=== PATIENT | male | born 1975 | race Caucasian/White ===

== ENCOUNTER → 2018-08-25 14:11 | Emergency (ER) | payer BC ==
[~2018-08-25 14:11] MED LIST: Ibuprofen TAB* 600 MG PO ONE
--- NOTE | 2018-08-25 15:54 | ED ---
Lower Extremity - HPI Summary HPI Summary: Patient complains of right foot pain after dropping trailer tongue on to right foot. Ambulatory with pain. Denies any other pain injury or symptoms. - History of Current Complaint Chief Complaint: EDExtremityLower Stated Complaint: FOOT INJURY Time Seen by Provider: 08/25/18 14:40 Hx Obtained From: Patient Mechanism Of Injury: Blunt Trauma Onset of Pain: Immediate Onset/Duration: Hours Severity Initially: Mild Pain Intensity: 3 Pain Scale Used: 0-10 Numeric Timing: Intermittent Location: Is Discrete @ Character Of Pain: Aching, Throbbing Associated Signs And Symptoms: Positive: Swelling, Bruising Aggravating Factor(s): Standing, Ambulation Alleviating Factor(s): Rest Able to Bear Weight: Yes - Allergies/Home Medications Allergies/Adverse Reactions: Allergies Allergy/AdvReac Type Severity Reaction Status Date / Time No Known Allergies Allergy Verified 08/25/18 14:15 Home Medications: Home Medications Lisinopril 10 mg PO DAILY 08/25/18 [History Confirmed 08/25/18] PMH/Surg Hx/FS Hx/Imm Hx Endocrine/Hematology History: Denies: Hx Diabetes, Hx Thyroid Disease Cardiovascular History: Reports: Hx Hypertension - mild Respiratory History: Reports: Hx Sleep Apnea Denies: Hx Asthma History: Denies: Hx Dialysis Sensory History: Denies: Hx Contacts or Glasses, Hx Hearing Aid Opthamlomology History: Denies: Hx Contacts or Glasses Neurological History: Denies: Hx Developmental Delay Psychiatric History: Reports: Hx Anxiety, Other Psychiatric Issues/Disorders - OCD - Cancer History Hx Chemotherapy: No - Surgical History Surgery Procedure, Year, and Place: vasectomy- Hx Anesthesia Reactions: No Infectious Disease History: No Infectious Disease History: Denies: Hx Clostridium Difficile, Hx Hepatitis, Hx Human Immunodeficiency Virus (HIV), Hx of Known/Suspected MRSA, Hx Shingles, Hx Tuberculosis, Hx Known/ Suspected VRE, Hx Known/Suspected VRSA, History Other Infectious Disease, Traveled Outside the [place] in Last 30 Days - Family History Known Family History: Negative: Hypertension, Diabetes - Social History Alcohol Use: Weekly Alcohol Amount: "a couple beers a week" Substance Use Type: Reports: None Smoking Status (MU): Never Smoked Tobacco Review of Systems Constitutional: Negative Eyes: Negative ENT: Negative Cardiovascular: Negative Respiratory: Negative Gastrointestinal: Negative Genitourinary: Negative Musculoskeletal: Other Positive: Bruising Neurological: Negative Psychological: Normal All Other Systems Reviewed And Are Negative: Yes Physical Exam - Summary Physical Exam Summary: Large hematoma and ecchymosis to the dorsal surface of right midfoot. PMS intact distally. No pain with palpation except directly on hematoma. Normal range of motion of right knee and right ankle without pain. No erythema or extra warmth noted to foot or ankle. Triage Information Reviewed: Yes Vital Signs On Initial Exam: Initial Vitals Temp Pulse Resp BP Pulse Ox 97.3 F 77 16 139/95 95 08/25/18 14:13 08/25/18 14:13 08/25/18 14:13 08/25/18 14:13 08/25/18 14:13 Vital Signs Reviewed: Yes Appearance: Positive: Well-Appearing Skin: Positive: Warm Head/Face: Positive: Normal Head/Face Inspection Eyes: Positive: Normal Neck: Positive: Supple Respiratory/Lung Sounds: Positive: Clear to Auscultation Cardiovascular: Positive: Normal Abdomen Description: Positive: Nontender Musculoskeletal: Positive: Normal Neurological: Positive: Normal Psychiatric: Positive: Normal AVPU Assessment: Alert - [place] Coma Scale Best Eye Response: 4 - Spontaneous Best Motor Response: 6 - Obeys Commands Best Verbal Response: 5 - Oriented Coma Scale Total: 15 Diagnostics - Vital Signs Vital Signs Temp Pulse Resp BP Pulse Ox 08/25/18 14:13 97.3 F 77 16 139/95 95 - Laboratory Lab Statement: Any lab studies that have been ordered have been reviewed, and results considered in the medical decision making process. Lower Extremity Course/Dx - Course Course Of Treatment: Patient complains of right foot pain after dropping trailer tongue on to right foot. Ambulatory with pain. Denies any other pain injury or symptoms. Vital signs within normal limits. X-ray right foot negative for fracture. - Diagnoses Provider Diagnoses: Foot contusion Discharge - Sign-Out/Discharge Documenting (check all that apply): Patient Departure Patient Received Moderate/Deep Sedation with Procedure: No - Discharge Plan Condition: Stable Disposition: HOME Patient Education Materials: Foot Contusion (ED), Hematoma (ED) Forms: *Work Release Referrals: Lyric Kim MD [Primary Care Provider] - Additional Instructions: Ice, rest and ibuprofen for right foot bruising. Return to the ED for any new or worsening symptoms. - Billing Disposition and Condition Condition: STABLE Disposition: Home
[2018-08-25 16:32] VITALS: BP 131/87
== END | disposition home or self-care (01) ==
LOC: ED 14:11
DX: I10 Essential (primary) hypertension (principal); Z79.899 Other long term (current) drug therapy; S90.31XA Contusion of right foot, initial encounter; W22.8XXA Striking against or struck by other objects, initial encounter
CPT/HCPCS: 99282; A9270-GY

== ENCOUNTER 2019-02-10 14:53 | Emergency (ER) | payer SELFPAY ==
[2019-02-10] MEDS ORDERED: Acetaminophen TAB* 325 MG PO ONE (15:18)
--- NOTE | 2019-02-10 15:18 | ED ---
Head Injury - HPI Summary HPI Summary: Pt is a 43 y/o M presenting by EMS to the ED for a head injury. 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 States he tackled the suspect, they fell to the ground, and on the way down hit his head on a tree. Pt states he had a brief LOC He hit the left side of his head where there is currently a small bump, and lost consciousness for about 10 seconds. He reports nausea, dizziness, and headache. He denies photophobia or bleeding from EENT. - History Of Current Complaint Chief Complaint: EDHeadInjury Stated Complaint: HEAD INJURY PER EMS Time Seen by Provider: 02/10/19 15:01 Hx Obtained From: Patient Mechanism Of Injury: Blunt Trauma Onset/Duration: Started Hours Ago, Still Present Onset of Pain: Immediate, Post Accident Severity Currently: Moderate Severity Initially: Moderate Pain Intensity: 6 Pain Scale Used: 0-10 Numeric Location of Head Injury: Temporal - left Character: Burning Associated Signs And Symptoms: LOC (Time In Secs./Mins/Hrs) - approx 10 sec, Nausea, Headache - Allergies/Home Medications Allergies/Adverse Reactions: Allergies Allergy/AdvReac Type Severity Reaction Status Date / Time No Known Allergies Allergy Verified 02/10/19 15:03 Home Medications: Home Medications Folic Acid/Multivit-Min/Lutein [Multi-Vitamin Gummies] 2 chw PO QAM 02/10/19 [ History Confirmed 02/10/19] Lisinopril TAB* [Prinivil TAB*] 20 mg PO DAILY 02/10/19 [History Confirmed 02/10] PARoxetine HCL TAB* [Paxil TAB*] 30 mg PO DAILY 02/10/19 [History Confirmed ] lamoTRIgine TAB(*) [LaMICtal TAB(*)] 50 mg PO BID 02/10/19 [History Confirmed ] PMH/Surg Hx/FS Hx/Imm Hx Previously Healthy: Yes Endocrine/Hematology History: Denies: Hx Diabetes, Hx Thyroid Disease Cardiovascular History: Reports: Hx Hypertension - mild Respiratory History: Reports: Hx Sleep Apnea Denies: Hx Asthma History: Denies: Hx Dialysis Sensory History: Denies: Hx Contacts or Glasses, Hx Hearing Aid Opthamlomology History: Denies: Hx Contacts or Glasses Neurological History: Denies: Hx Developmental Delay Psychiatric History: Reports: Hx Anxiety, Other Psychiatric Issues/Disorders - OCD - Cancer History Hx Chemotherapy: No - Surgical History Surgery Procedure, Year, and Place: vasectomy- Hx Anesthesia Reactions: No Infectious Disease History: No Infectious Disease History: Denies: Hx Clostridium Difficile, Hx Hepatitis, Hx Human Immunodeficiency Virus (HIV), Hx of Known/Suspected MRSA, Hx Shingles, Hx Tuberculosis, Hx Known/ Suspected VRE, Hx Known/Suspected VRSA, History Other Infectious Disease, Traveled Outside the [place] in Last 30 Days - Family History Known Family History: Negative: Hypertension, Diabetes - Social History Alcohol Use: Weekly Alcohol Amount: "a couple beers a week" Hx Substance Use: No Substance Use Type: Reports: None Hx Tobacco Use: No Smoking Status (MU): Never Smoked Tobacco Review of Systems Negative: Photophobia Negative: Other - bleeding from eent Positive: Nausea Neurological: Other - LOC, dizziness Positive: Headache All Other Systems Reviewed And Are Negative: Yes Physical Exam Triage Information Reviewed: Yes Vital Signs On Initial Exam: Initial Vitals Temp Pulse Resp BP Pulse Ox 97.3 F 79 16 143/92 95 02/10/19 14:59 02/10/19 14:59 02/10/19 14:59 02/10/19 14:59 02/10/19 14:59 Vital Signs Reviewed: Yes - [place] Coma Scale Best Eye Response: 4 - Spontaneous Best Motor Response: 6 - Obeys Commands Best Verbal Response: 5 - Oriented Coma Scale Total: 15 Procedures - Sedation Patient Received Moderate/Deep Sedation with Procedure: No Diagnostics - Vital Signs Vital Signs Temp Pulse Resp BP Pulse Ox 02/10/19 15:01 79 95 02/10/19 15:00 79 143/92 02/10/19 14:59 97.3 F 79 16 143/92 95 - Laboratory Lab Statement: Any lab studies that have been ordered have been reviewed, and results considered in the medical decision making process. - CT Brain CT CT Interpretation Completed By: Radiologist Summary of CT Findings: No CT evidence for traumatic brain injury or acute intracranial process. ED physician has reviewed this report. CT C-spine CT Interpretation Completed By: Radiologist Summary of CT Findings: No CT evidence for traumatic cervical spine injury. ED physician has reviewed this report. Re-Evaluation - Re-Evaluation 1st re-eval Re-Evaluation Time: 16:10 Change: Unchanged Comment: Informed pt of his CT results. Advised that he ambulate and then he can be d/c'ed home. Head Injury Course/Dx - Diagnoses Provider Diagnoses: Head contusion, Closed head injury Discharge ED - Sign-Out/Discharge Documenting (check all that apply): Patient Departure - Discharge Plan Condition: Stable Disposition: HOME Patient Education Materials: Head Injury (ED), Scalp Contusion in Adults (ED) Forms: *Work Release Referrals: Naresh Alvarez MD [Medical Doctor] - (call tomorrow for an appointment this week ) Lyric Kim MD [Primary Care Provider] - Additional Instructions: - Stay well hydrated. Drink plenty of nonalcoholic, non-caffeinated beverages. - Okay to alternate ibuprofen (Advil, Motrin) and Tylenol (acetaminophen) every 3 hours for pain or fever. Take with food. Do NOT take for more than 4-5 days. - Apply ice 20 minutes at a time 2-3 days to the area of injury - Anticipate increased discomfort over the next 1-2 days. This is normal after any kind of trauma. - Contact Dr. Alvarez, occupational medicine physician, tomorrow morning to schedule a follow-up appointment. - If you develop concerning symptoms which include vision changes, concentration changes, difficulty with balance, vomiting is recommended to contact Dr. Alvarez or return to the emergency department - Was discussed, as recommended to decrease the amount of screen time which includes television, computer, cell phone, I had an similar devices over the next 1-2 days. - Get plenty of restful sleep as this will help your recovery - Billing Disposition and Condition Condition: STABLE Disposition: Home - Attestation Statements Document Initiated by Scribe: Yes Documenting Scribe: Gail Angulo Provider For Whom Vinod is Documenting (Include Credential): Denia Alexander MD. Scribe Attestation: I, Gail Angulo, scribed for Denia Alexander MD. on 02/11/19 at 1041. Status of Scribe Document: Viewed
[2019-02-10 16:42] VITALS: BP 124/68
== END 2019-02-10 16:39 | disposition home or self-care (01) ==
LOC: ED 14:53
DX: S00.93XA Contusion of unspecified part of head, initial encounter (principal); R55 Syncope and collapse; I10 Essential (primary) hypertension; R42 Dizziness and giddiness; R11.0 Nausea; R51 Headache; W18.00XA Striking against unspecified object with subsequent fall, initial encounter; Y92.9 Unspecified place or not applicable
CPT/HCPCS: 70450; 72125; 99282; A9270-GY